=== PATIENT | male | born 1975 | race Caucasian/White ===

== ENCOUNTER → 2019-06-09 | Day surgery (SDC) | payer BC ==
[2019-06-07 15:33] LABS: BASOPHILS # (AUTO) 0.1 (0.0-0.1); BASOPHILS % 1.1 % (0.0-1.0); EOSINOPHILS # (AUTO) 0.4 (0.0-0.4); EOSINOPHILS % 5.6 % (0.0-6.0); HEMATOCRIT 44.8 % (38.2-49.6); HEMOGLOBIN 15.1 g/dL (14.0-18.0); LYMPHOCYTES % 30.2 % (18.0-39.1); MEAN CORPUSCULAR HEMOGLOBIN 27.8 pg (28-32); MEAN CORPUSCULAR HGB CONC 33.7 g/dL (31-35); MEAN CORPUSCULAR VOLUME 82.4 fL (81-99); MONOCYTES # (AUTO) 0.6 (0.2-0.8); MONOCYTES % 8.8 % (4.4-11.3); NEUTROPHILS # (AUTO) 3.6 (2.1-6.9); PLATELET COUNT 291 x10e3/uL (140-360); RED BLOOD COUNT 5.44 x10e6/uL (4.3-5.7); RED CELL DISTRIBUTION WIDTH 13.2 % (11.7-14.4)
[2019-06-07 15:49] LABS: ALANINE AMINOTRANSFERASE 33 IU/L (0-55); ALBUMIN 4.4 g/dL (3.5-5.0); ALBUMIN/GLOBULIN RATIO 1.5 (0.8-2.0); ALKALINE PHOSPHATASE 81 IU/L (40-150); ANION GAP 13.6 mmol/L (8-16); BLOOD UREA NITROGEN 13 mg/dL (7-26); BUN/CREATININE RATIO 11 (6-25); CARBON DIOXIDE 28 mmol/L (22-29); CHLORIDE 101 mmol/L (98-107); CREATININE, SERUM 1.14 mg/dL (0.72-1.25); EST GLOMERULAR FILTRATION RATE > 60 ML/MIN (60-); GLUCOSE 95 mg/dL (74-118); POTASSIUM 4.6 mmol/L (3.5-5.1); SODIUM 138 mmol/L (136-145)
[~2019-06-09] VITALS: Ht 175.3 cm; Wt 107.0 kg
[2019-06-09] VITALS (7 sets, daily range): BP systolic 114–135; BP diastolic 77–88
[~2019-06-09] MED LIST: ALPRAZOLAM 0.5 MG TAB ONE; ASPIR 8181 MG PO; DIPHENHYDRAMINE HCL 25 MG CAP ONE; FENTANYL CITRATE/PF 100MCG/2 ML INJ ONE; HEPARIN SOD/SOD CHLORIDE 2,000 ML ONE; IOPAMIDOL 370 MG/ML 200 ML INFUS..BTL INJ ONE; LIDOCAINE HCL 2% LOCAL 20 ML VIAL ONE; MIDAZOLAM HCL 2 MG/2 ML VIAL ONE; SODIUM CHLORIDE 0.9% 1000ML 1,000 ML ONE
--- NOTE | 2019-06-09 13:00 | NUR ---
1300 bedside report received from David POSADAS. Alert oriented and appropriate, PERRLA, respirations even and unlabored to room air. Pulses x4 extremities equal and strong. Pedal pulses PT/DP x4 .Cap fill brisk < 3 sec. Skin warm and dry integrity appears DI. IV 20g to left infusing 100cchr and presents healthy w/o s/s of infiltration or complaint. Abdomen soft and supple. pt offered toileting, denies need to urinate or defecate. No personal affects with patient. Family at bedside Pt and family verbalizes understanding of POC. Rt TR band down 1330 No gross issues pain pallor pressure or dysrhythmia. Currently w/o complaint of pain or need. ds/nela
--- NOTE | 2019-06-09 13:30 | NUR ---
1330p RADIAL Compression removal: Initial Cuff volume 13 cc 1330 -2cc Removed No hematoma/bleeding noted with normal neurovascular function. 1345 -2cc Removed No hematoma/ bleeding noted with normal neurovascular function. 1400 -2cc Removed No hematoma/bleeding noted with normal neurovascular function. 1415 -2cc Removed No hematoma/ bleeding noted with normal neurovascular function. Air removal completed. 1430pm Stasis achieved sterile 2x2,Tegaderm, Coban dressing No hematoma, bleeding noted with normal neurovascular function. Wrist splint in place. Pt instructed on POC. Ds/Rn
--- NOTE | 2019-06-09 15:15 | NUR ---
1515--Pt meets DC criteria. Rt TR band site assessed for s/s of complication and presecence of hematoma. warm, dry, no discolor, and pulses present. IV removed from left arm. Distal tip appears intact. VS WNL. Pt denies pain, sob, or need at this time. Family at bedside, family and has discharge paperwork and follow up instructions. verbalized understanding. Pt to wheelchair and transported to front of hospital. Transferred to private car with [facility] escort has copies of papers in hand and back to baseline Orientation Denies CP or SOB ds/rn
--- NOTE | 2019-06-09 16:29 | Operative Report ---
DATE OF PROCEDURE: 06/09/2019 SURGEON: Ruben Muñoz MD INDICATIONS: Coronary artery disease, unstable angina. PROCEDURES PERFORMED: 1. Left heart catheterization, selective coronary angiography. 2. Deployment of right wrist TR band. COMPLICATIONS: None. 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 PROCEDURE IN DETAIL: Access obtained in the right radial artery. A 5-Faroese sheath was placed. Coronary angiography demonstrated minimal coronary artery disease, less than 10% luminal irregularities in all coronary vessels. 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 LV end-diastolic pressure of 4. No gradient across the aortic valve on pullback. Right wrist TR band applied. The patient discharged home same day. Ruben Muñoz MD K[facility]/MODL /[id number]
== END | disposition home or self-care (01) ==
LOC: CATH LAB 10:14 → EDSEX 11:30
PROVIDERS: ATTEND Internal Medicine Interventional Cardiology
DX: I25.110 Atherosclerotic heart disease of native coronary artery with unstable angina pectoris (principal); Z01.812 Encounter for preprocedural laboratory examination; Z79.82 Long term (current) use of aspirin; Z83.3 Family history of diabetes mellitus; Z88.0 Allergy status to penicillin
CPT/HCPCS: 36415; 80053; 85025; 93458; C1769; C1887; J2001; J2250; J3010; J7030; Q9967